=== PATIENT | male | born 1990 | race Two or more races ===

== ENCOUNTER 2019-06-15 22:48 | Emergency (ER) | payer OTHER ==
[~2019-06-15] VITALS: Ht 170.2 cm; Wt 75.0 kg
[2019-06-15 23:30] VITALS: BP 124/88
[2019-06-15] MEDS ORDERED: LIDOCAINE 1% 10 ML VIAL INJ ONE ×2 (23:30→23:45)
[2019-06-15] MEDS ORDERED: PERTUSS(ACELL),DIPH,TET VAC/PF 0.5 ML VIAL IM ONE ×2 (23:45)
[2019-06-16] MEDS ORDERED: BACITRACIN 0.9 GM PACKET OINTMENT TP ONE
== END 2019-06-16 00:59 | disposition home or self-care (01) ==
LOC: EMS 22:48
DX: S61.411A Laceration without foreign body of right hand, initial encounter (principal); W26.8XXA Contact with other sharp object(s), not elsewhere classified, initial encounter; Y93.89 Activity, other specified; Y92.89 Other specified places as the place of occurrence of the external cause; Y99.0 Civilian activity done for income or pay
CPT/HCPCS: 12001; 90471; 90715; 99283; J3490